=== PATIENT | male | born 1955 | race Caucasian/White ===

== ENCOUNTER 2017-05-13 11:53 | Emergency (ER) | payer MEDICAID, OTHER ==
[2017-05-13] MEDS ORDERED: NORMAL SALINE 1,000 ML IV PRN (12:11)
[2017-05-13] MEDS ORDERED: DEXTROSE 50%-WATER 50 ML SYRG IV ONE (12:12)
[2017-05-13] MEDS ORDERED: hydrALAZINE HCL 20 MG/ML VIAL IV ONE ×2 (12:12→13:51)
[2017-05-13] MEDS ORDERED: DEXTROSE 50%-WATER 50 ML SYRG ONE (12:25)
[2017-05-13] MEDS ORDERED: hydrALAZINE HCL 20 MG/ML VIAL ONE ×2 (12:25→13:52)
[2017-05-13 12:32] LABS: Hematocrit 44.5 % (42.0-52.0); Hemoglobin 15.6 gm/dL (13.5-18.0); Mean Cell Volume 85.7 fl (78-100); Mean Corpuscular Hemoglobin 30.1 pg (27-31); Mean Corpuscular Hgb Conc 35.1 g/dl (32-36); Mean Platelet Volume 9.2 fl (6.0-9.5); Neutrophil # 4.1 K/mm3 (1.3-6.0); Neutrophil % 62.3 % (42-75.0); Platelet Count 202 K/mm3 (150-450); Red Blood Count 5.19 M/mm3 (4.7-6.0); Red Cell Distribution Width 13.5 % (11.5-14.0); White Blood Count 6.5 K/mm3 (4.0-10.5)
[2017-05-13 12:44] LABS: INR 1.09 INR (0.90-1.10); Partial Thrombolplastin Time 26.2 Seconds (24-32); Prothrombin Time (Patient) 10.9 Seconds (9.0-11.0)
[2017-05-13 12:46] LABS: Albumin * 3.3 gm/dl (3.4-5.0); BUN/Creatinine Ratio 17.3 (9.0-21.6); Bilirubin, Total 0.6 mg/dL (0.0-1.1); Ca. Corrected For Albumin 8.7 mg/dL (8.4-10.2); Calcium * 8.5 mg/dL (7.9-10.9); Carbon Dioxide 27.7 mmol/L (24-32.6); Potassium 3.7 mmol/L (3.4-4.6); Total Protein 7.3 gm/dL (6.2-8.2)
[2017-05-13] MEDS ORDERED: MORPHINE SULFATE 2 MG/ML DISP.SYRIN IV ONE (13:30)
[2017-05-13] MEDS ORDERED: MORPHINE SULFATE 2 MG/ML DISP.SYRIN ONE (13:57)
--- NOTE | 2017-05-13 14:14 | ERNOTE ---
Medical Problem HPI - Narrative Date of Service: 05/13/17 - General Chief Complaint: General Assessment Time Seen by Provider: 05/13/17 12:10 Source: patient, family Exam Limitations: no limitations - Immun/Allergies/Home Medications Immunizations: IMMUNIZATION HX Immunizations Up to Date Yes History of Influenza Vaccine No Hx Pneumococcal Vaccination Yes Allergies/Adverse Reactions: Allergies No Known Allergies Allergy (Verified 05/13/17 12:09) Home Medications: HOME MEDICATIONS NK [No Home Medication] 05/13/17 [Last Taken Unknown] - History of Present History Narrative: patient had symptoms orf right-sided upper extremity numbness and slurred speech which resolved, symptoms reocurred at 1030 this am and have improved Timing: intermittent Severity: moderate Modifying Factors - (Improves): Present: rest Modifying Factors - (Worsens): Present: movement Review of Systems - Review of Systems Constitutional: Present: See HPI, fatigue, malaise EYE: Present: no symptoms reported ENT: Present: no symptoms reported Respiratory: Present: no symptoms reported Cardiology: Present: no symptoms reported Gastrointestinal/Abdominal: Present: no symptoms reported Genitourinary: Present: no symptoms reported Musculoskeletal: Present: no symptoms reported Neurological: Present: See HPI, headache, numbness Endocrine: Present: no symptoms reported Hematologic/Lymphatic: Present: no symptoms reported Psych: Present: no symptoms reported All Other Systems: All systems neg except as marked - Patient's Past Medical History Patient History - Medical: No pertinent hx Patient History - Cardiac/Respiratory: No pertinent hx Patient History - Cancer: No Hx of Cancer Patient History - Surgical Procedures: Other Patient History - Other: None - Family History Family History:: no untoward family reactions to anesthesia, no familial bleeding tendencies, no family history of clotting disorders, no family history of premature - Social History Living Situations: home Abuse History: No History of abuse Psych History: No pertinent hx Does anyone smoke in the home?: No Smoking Status: Never smoker Have you smoked in the past 12 months: No Do you dip or chew tobacco: No Patient requests Smoking Cessation Consult: No Initiate information on Smoking Cessation: No Alcohol Use: none Drug Use: none - Immunizations Immunizations Up to Date: Yes Hx Pneumococcal Vaccination: Yes History of Influenza Vaccine: No Physical Exam - Physical Exam General Appearance: Present: mild distress, anxious Eye Exam: Normal inspection: bilateral, PERRL: bilateral, EOMI: bilateral Ears, Nose, Throat: Present: normal ENT inspection Neck: Present: normal inspection, nontender Respiratory: Present: no respiratory distress, normal breath sounds, no accessory muscle use, chest nontender, lungs clear Cardiovascular/Chest: Present: regular rate, rhythm, no murmur, normal peripheral pulses Peripheral Pulses: N=norm/S=strong/W=weak/B=bound/A=absent: Carotid (R): Normal , Carotid (L): Normal, Radial (R): Normal, Radial (L): Normal, Femoral (R): Normal, Femoral (L): Normal, Dorsalis-pedis (R): Normal, Dorsalis-pedis (L): Normal Gastrointestinal/Abdominal: Present: normal bowel sounds, nontender, nondistended, soft, no organomegaly Back Exam: Present: normal inspection, normal range of motion, no CVA tenderness , no vertebral tenderness Extremity Exam: Present: normal inspection Neurological Exam: Present: alert, normal mood/affect, 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 - Vital Signs Patient's Vital Signs:: I have reviewed the patient's vital signs. Vital Signs: Vital Signs 05/13/17 05/13/17 05/13/17 12:00 12:18 12:31 Temperature 36.8 C 37.1 C Pulse Rate 74 70 70 Respiratory 11 L 19 Rate Blood Pressure 186/104 195/108 185/103 O2 Sat by Pulse 97 96 Oximetry 05/13/17 05/13/17 05/13/17 12:50 13:26 13:56 Temperature 36.4 C L Pulse Rate 80 73 76 Respiratory 16 18 Rate Blood Pressure 154/74 156/87 208/113 O2 Sat by Pulse 96 96 Oximetry - EKG EKG: NSR - X-Ray X-Ray #1 X-Ray: chest - nad - CT/Ultrasound CT/Ultrasound Narrative: subdural hematoma,acute on chronic - Progress/Reassessment Chief Complaint: General Assessment Progress:: Unchanged - Transfer of Care Expected Disposition: Transfer - case discussed with [facility] who accepts patient for transfer Plan - Plan Plan: to be transfered Departure Clinical Impression: Subdural hematoma - Departure Disposition: [facility] Condition: Fair Referrals: Romy Harrison MD [Primary Care Provider] -
[2017-05-13 14:37] VITALS: BP 154/82
[2017-05-13] MEDS ORDERED: LORazepam 2 MG/ML DISP.SYRIN IV ONE (14:55)
[2017-05-13] MEDS ORDERED: LORazepam 2 MG/ML DISP.SYRIN ONE (14:57)
== END 2017-05-13 15:15 | disposition short-term general hospital (02) ==
LOC: ER 11:53
DX: I62.00 Nontraumatic subdural hemorrhage, unspecified (principal)